=== PATIENT | female | born 1960 | race Hispanic/Latino ===

== ENCOUNTER 2017-01-14 10:10 | Emergency (ER) | payer OTHER ==
[2017-01-14 10:11] VITALS: BMI 19.5
--- NOTE | 2017-01-14 11:21 | C.PDOC ---
History Of Present Illness 56 yr old female presents to the ER with complaints of right arm pain, s/p falling onto her arm yesterday. Patient denies head injury, chest pain, SOB, back pain, weakness, numbness or any symptoms prior to the fall. Time Seen by Provider: 01/14/17 15:15 Chief Complaint (Nursing): Upper Extremity Problem/Injury History Per: Patient History/Exam Limitations: no limitations Onset/Duration Of Symptoms: Days (1) Current Symptoms Are (Timing): Still Present Past Medical History Reviewed: Historical Data, Nursing Documentation, Vital Signs Vital Signs: Last Vital Signs Temp 97.8 F 01/14/17 15:20 Pulse 76 01/14/17 15:20 Resp 16 01/14/17 15:20 BP 109/62 01/14/17 15:20 Pulse Ox 96 01/14/17 18:12 - Medical History PMH: Anxiety, Arthritis, Asthma, COPD - [facility] Procedures OTH UNILAT OOPHORECTOMY (09/14/02) SUBTOT ABD HYSTERECTOMY (09/14/02) Family History: States: No Known Family Hx - Social History Hx Tobacco Use: Yes Hx Alcohol Use: No Hx Substance Use: Yes Review Of Systems Except As Marked, All Systems Reviewed And Found Negative. Cardiovascular: Negative for: Chest Pain Respiratory: Negative for: Shortness of Breath Musculoskeletal: Positive for: Arm Pain (Right arm ). Negative for: Back Pain Neurological: Negative for: Weakness, Numbness Physical Exam - Physical Exam Appears: Non-toxic, No Acute Distress Skin: Warm, Dry, No Rash Head: Atraumatic, Normacephalic Oral Mucosa: Moist Neck: Normal, Normal ROM, No Midline Cervical Tenderness, Supple Chest: Symmetrical, No Tenderness Cardiovascular: Rhythm Regular, No Murmur Respiratory: Normal Breath Sounds, No Rales, No Rhonchi, No Stridor, No Wheezing Extremity: Normal ROM (At the right elbow, wrist and hand. ), Capillary Refill ( <2), Other (Right Upper Extremity - Swollen. Ecchymotic. Significant decrease ROM in all directions at the shoulder. ) Pulses: Left Radial: Normal, Right Radial: Normal Neurological/Psych: Oriented x3, Normal Speech, Normal Sensation ED Course And Treatment O2 Sat by Pulse Oximetry: 96 (RA ) Pulse Ox Interpretation: Normal - Other Rad X-Ray - Right Shoulder X-Ray: Viewed By Me, Read By Radiologist Interpretation: PROCEDURE: Radiographs of the Right Shoulder. HISTORY: r/o fx. COMPARISON: No prior. FINDINGS: BONES: Comminuted proximal right humeral fracture - greater tuberosity and surgical neck level and lateral humeral head involvement suspect. No some of the small fracture fragments project inferior to the glenoid rim border the medial portion of the right femoral head neck junction. JOINTS: Minimal right glenohumeral and lesser acromioclavicular osteoarthritis. SOFT TISSUES: Normal. OTHER FINDINGS: None. IMPRESSION: Comminuted fracture proximal right humerus. Consider CT right shoulder for fracture fragment mapping X-Ray - Right Humerus X-Ray: Viewed By Me, Read By Radiologist Interpretation: PROCEDURE: Radiographs of the right humerus. HISTORY: r/o fx. COMPARISON: None. FINDINGS: BONES: Proximal right femoral head and surgical neck comminuted fracture -described on the right shoulder x-ray report. Please note that report. SOFT TISSUES: Normal. OTHER FINDINGS: None. IMPRESSION: Comminuted fractures proximal right humerus -please note right shoulder x-ray report. No gross dislocation. Distal humerus unremarkable X-Ray - Right Forearm X-Ray: Viewed By Me, Read By Radiologist Interpretation: PROCEDURE: Radiographs of the Right Forearm. HISTORY: r/o fx. COMPARISON: None available. TECHNIQUE: Frontal and lateral views obtained. FINDINGS: BONES: No fracture or destructive lesion. JOINT SPACES: Unremarkable. OTHER FINDINGS: Apparent negative ulnar variance. Diffuse extensive subcutaneous reticulated edema-diffuse lymphedema with or without cellulitis inferred. No periosteal reaction or osseous destruction appreciated. No fracture or dislocation appreciated. IMPRESSION: Extensive subcutaneous edema. No fracture. X-Ray - Right Elbow X-Ray: Viewed By Me, Read By Radiologist Interpretation: PROCEDURE: Radiographs of the right elbow. HISTORY: r/o fx. COMPARISON: No prior. FINDINGS: BONES: Minimal coronoid spurring. No gross fracture. JOINTS: Minimal osteoarthritis. SOFT TISSUES: Diffuse subcutaneous edema. JOINT EFFUSION: Limited lateral view for optimally assessing joint effusion. OTHER FINDINGS: None. IMPRESSION: Limited lateral view (slightly oblique) for assessing for central joint effusion. Recommend additional imaging - true lateral right elbow exam. Comments: Findings were called in to the ER physician, Dr. Lee ; informed that orthopedist now taking care of patient and will address this concern with clinical exam. True lateral view of the elbow still recommended X-Ray - Right Hand X-Ray: Viewed By Me, Read By Radiologist Interpretation: PROCEDURE: Right Hand Radiographs. HISTORY: r/o fx. COMPARISON: None. FINDINGS: BONES: Normal. No fracture. JOINTS: Osteoarthrosis 1st and 5th digit. SOFT TISSUES: Soft tissue swelling 5th proximal interphalangeal joint and overlying the dorsal metatarsals. OTHER FINDINGS: Mild negative ulnar variance suspect. IMPRESSION: No gross fracture. Soft tissue swelling. Osteoarthrosis X-Ray - Right Wrist X-Ray: Viewed By Me, Read By Radiologist Interpretation: PROCEDURE: Right Wrist Radiographs. . HISTORY: r/o fx. COMPARISON: None. FINDINGS: BONES: Normal. No fracture. JOINTS: Normal. No dislocation. SOFT TISSUES: Normal. OTHER FINDINGS: Mild negative ulnar variance suspect. IMPRESSION: No fracture. - CT Scan/US CT - Upper Extremity Other Rad Studies (CT/US): Read By Radiologist, Radiology Report Reviewed CT/US Interpretation: PROCEDURE: CT examination of right shoulder without contrast. HISTORY: f/u to x-rays today, evaluation of fx. COMPARISON: Comparison made with prior right shoulder radiographs from 01/14/2017 earlier in the same day as well as right of the right humerus. TECHNIQUE: A volumetric CT acquisition through the right shoulder was performed without intravenous contrast as requested. Reformatted datasets have been provided in multiple planes. Contrast dose: 0. Radiation dose: Total exam DLP = 478 mGy- cm. This CT exam was performed using one or more of the following dose reduction techniques: Automated exposure control, adjustment of the mA and/or kV according to patient size, and/or use of iterative reconstruction technique. FINDINGS: Examination reiterates a comminuted impacted fracture proximal right humerus involving the proximal metaphysis as well as the epiphysis. There is no significant angulation of the major distal fracture fragment. There are least 6 independent for comminuted components without involving the right humeral head and metaphysis. No subluxation or dislocation is identified. Fracture appears to involve the periphery of the articular cortex superiorly and inferomedially at the humeral head. The acromioclavicular joint appears intact though mildly degenerated. Mild hemarthrosis identified extending minimally into the subacromial subdeltoid bursa. Incidental note is made of right breast calcifications. IMPRESSION: Comminuted fracture of the proximal right humerus involving the head and proximal metaphysis without dislocation or subluxation. Please see details above. Medical Decision Making Medical Decision Making: PLAN: * CT - Upper Extremity * X-Ray - Right Shoulder, Right Humerus, Right Elbow, Right Forearm, Right Wrist , Right Hand * Venous Duplex * Tylenol PO Disposition - Disposition Referrals: Stephanie Galdamez MD [Staff Provider] - Disposition: HOME/ ROUTINE Disposition Time: 14:40 Condition: GOOD Additional Instructions: Thank you for letting us take care of you today. Your provider was Dr. Dewey. You were treated for arm fracture. The emergency medical care you received today was directed at your acute symptoms. If you were prescribed any medication, please fill it and take as directed. It may take several days for your symptoms to resolve. Return to the Emergency Department if your symptoms worsen, do not improve, or if you have any other problems. Please contact your doctor or call one of the physicians/clinics you have been referred to that are listed on the Patient Visit Information form that is included in your discharge packet. Bring any paperwork you were given at discharge with you along with any medications you are taking to your follow up visit. Our treatment cannot replace ongoing medical care by a primary care provider (PCP) outside of the emergency department. Thank you for allowing the [facility] team to be part of your care today. Continue to wear the sling at all times. Follow up with Dr. Devon Frances tomorrow for your orthopedic evaluation. Instructions: Arm Fracture in Adults (ED) - Clinical Impression Clinical Impression: Humeral fracture - Scribe Statement The provider has reviewed the documentation as recorded by the Sheila Chavez Provider Attestation: All medical record entries made by the Sheila were at my direction and personally dictated by me. I have reviewed the chart and agree that the record accurately reflects my personal performance of the history, physical exam, medical decision making, and the department course for this patient. I have also personally directed, reviewed, and agree with the discharge instructions and disposition.
--- NOTE | 2017-01-14 12:16 | RAD ---
PROCEDURE: Radiographs of the Right Shoulder HISTORY: r/o fx COMPARISON: No prior. FINDINGS: BONES: Comminuted proximal right humeral fracture - greater tuberosity and surgical neck level and lateral humeral head involvement suspect. No some of the small fracture fragments project inferior to the glenoid rim border the medial portion of the right femoral head neck junction. JOINTS: Minimal right glenohumeral and lesser acromioclavicular osteoarthritis. SOFT TISSUES: Normal. OTHER FINDINGS: None. IMPRESSION: Comminuted fracture proximal right humerus. Consider CT right shoulder for fracture fragment mapping
--- NOTE | 2017-01-14 12:18 | RAD ---
PROCEDURE: Radiographs of the right humerus. HISTORY: r/o fx COMPARISON: None FINDINGS: BONES: Proximal right femoral head and surgical neck comminuted fracture -described on the right shoulder x-ray report. Please note that report SOFT TISSUES: Normal. OTHER FINDINGS: None. IMPRESSION: Comminuted fractures proximal right humerus -please note right shoulder x-ray report. No gross dislocation. Distal humerus unremarkable
--- NOTE | 2017-01-14 12:25 | CP.PCM.CON ---
History of Present Illness - History of Present Illness History of Present Illness: Orthopedic consultation requested Dr. Ramsey for right arm pain from fall 56F complains of right shoulder pain from fall yesterday. She says the pain is in her shoulder, but her entire arm is swollen and black and blue so she came to the ER. She denies ETOH, denies taking blood thinners. She says she injured her other arm last year and had brace for that arm that she used for this arm. She says she had an mtatie bandage that she wrapped around her upper arm last night. She denies any head/neck pain, denies pain in her other extremities. 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 Smokes 1ppd. Smoking cessation advised. PMD; Dr. Abdi PMH: anxiety, COPD, asthma Review of Systems - Review of Systems All systems: reviewed and no additional remarkable complaints except - Constitutional Additional comments: no weakness - Cardiovascular Cardiovascular: As Per HPI - Respiratory Respiratory: As Per HPI - Gastrointestinal Additional comments: no nausea/vomiting - Genitourinary Additional comments: denies dark urine, urination amount and frequency normal - Musculoskeletal Musculoskeletal: As Per HPI - Integumentary Integumentary: Unusual Bruising - Neurological Neurological: As Per HPI - Hematologic/Lymphatic Hematologic: absent: As Per HPI, Easy Bleeding, Easy Bruising, Lymphadenopathy, Other Past Patient History - Tetanus Immunizations Tetanus Immunization: Unknown - Past Medical History & Family History Past Medical History?: Yes Past Family History: Reviewed and not pertinent - Past Social History Smoking Status: Heavy Smoker > 10 Cigarettes Daily - CARDIAC Hx Cardiac Disorders: Yes Hx Hypotension: Yes - PULMONARY Hx Asthma: Yes Hx Chronic Obstructive Pulmonary Disease (COPD): Yes - MUSCULOSKELETAL/RHEUMATOLOGICAL Hx Arthritis: Yes - PSYCHIATRIC Hx Anxiety: Yes Hx Depression: No Hx Substance Use: Yes - SURGICAL HISTORY Hx Surgeries: Yes Hx Herniorrhaphy: Yes (LEFT INGUINAL) Hx Hysterectomy: Yes (partial) Other/Comment: ECTOPIC - ANESTHESIA Hx Anesthesia: Yes Hx Anesthesia Reactions: No Meds Allergies/Adverse Reactions: Allergies Allergy/AdvReac Type Severity Reaction Status Date / Time aspirin Allergy WHEEZING Verified 01/14/17 10:22 Penicillins Allergy WHEEZING Verified 01/14/17 10:22 Sulfa (Sulfonamide Allergy WHEEZING Verified 01/14/17 10:22 Antibiotics) Physical Exam - Constitutional Appears: Well, No Acute Distress - Head Exam Head Exam: ATRAUMATIC, NORMAL INSPECTION - Neck Exam Neck exam: Positive for: Full Rom, Normal Inspection - Respiratory Exam Respiratory Exam: NORMAL BREATHING PATTERN - Extremities Exam Additional comments: non tender to distal humerus/elbow/forearm/wrist/hand but extension ecchymosis and soft tissue swelling, ? due to patient wrapping mattie bandage causing pseudo tourniquet. - Expanded Upper Extremities Exam Right Shoulder exam: ecchymosis, swelling, tenderness Upper Arm exam: ecchymosis, swelling Elbow exam: ecchymosis, swelling (non tender, no pain with flex/ext/pron/ supination, full ROM, stiffness due to swelling) Forearm Wrist exam: ecchymosis, swelling Neuro motor exam: finger 2-5 abduction intact, thumb abduction, thumb IP flexion intact, thumb opposition intact, wrist extension intact Neurosensory exam: median nerve intact, radial nerve intact, ulnar nerve intact Vascular exam: radial pulse - Neurological Exam Neurological exam: Alert, Oriented x3 - Psychiatric Exam Psychiatric exam: Normal Affect, Normal Mood - Skin Skin Exam: Dry, Intact, Warm Additional comments: extensive ecchymosis to entire right arm/elbow/forearm Results - Vital Signs Recent Vital Signs: Last Vital Signs Temp 98.2 F 01/14/17 10:21 Pulse 89 01/14/17 10:21 Resp 18 01/14/17 10:21 BP 108/64 01/14/17 10:21 Pulse Ox 96 01/14/17 11:21 Assessment & Plan (1) Fracture of humerus, proximal, left, closed Assessment and Plan: comminuted proximal humerus fracture no dislocation noted on x-rays sling placed with hand elevated above elbow ice encouraged patient to keep hand elevated, and encourage active ROM of fingers and wrist every hour swelling and ecchymosis to elbow and forearm more than expected this soon after fracture, possibly due to mattie bandage and lack of elevation check doppers r/o DVT CT scan shoulder for further evaluation of fracture repeat lateral elbow xray, clinically very low suspicion of fracture, but due to excessive ecchymosis, patient taking high doses of methadone may have muted pain response so will r/o joint effusion on lateral return to ER for CP/SOB/dark or difficulty with urination d/w Dr. Ramsey, agrees with above addendum: lateral xray neg for effusion, and dopplers neg for DVT Status: Acute Radiology Interpretation - Blood Tester Fowl Blood Tester Fowl:: Radiologist, Daycare Teacher - Radiology Interpretation #2 Interpretation: Patient Name / ID : BHAKTI LAZAR / [id number] Exam Date : 01/14/2017 10:47:57 ( Approved ) Study Comment : Sex / Age : F / 56Y Creator : SAM GAY Dictator : Debra Beavers V. Finishing Room Supervisor : Stave Jointer : Debra Beavers V. Approver2 : Report Date : 01/14/2017 11:28:38 My Comment : PROCEDURE: Radiographs of the Right Shoulder HISTORY: r/o fx COMPARISON: No prior. FINDINGS: BONES: Comminuted proximal right humeral fracture - greater tuberosity and surgical neck level and lateral humeral head involvement suspect. No some of the small fracture fragments project inferior to the glenoid rim border the medial portion of the right femoral head neck junction. JOINTS: Minimal right glenohumeral and lesser acromioclavicular osteoarthritis. SOFT TISSUES: Normal. OTHER FINDINGS: None. IMPRESSION: Comminuted fracture proximal right humerus. Consider CT right shoulder for fracture fragment mapping Patient Name / ID : BHAKTI LAZAR / [id number] Exam Date : 01/14/2017 10:47:40 ( Approved ) Study Comment : Sex / Age : F / 56Y Creator : SAM GAY Dictator : Debra Beavers V. Finishing Room Supervisor : Stave Jointer : Debra Beavers V. Approver2 : Report Date : 01/14/2017 11:28:38 My Comment : PROCEDURE: Radiographs of the right humerus. HISTORY: r/o fx COMPARISON: None FINDINGS: BONES: Proximal right femoral head and surgical neck comminuted fracture -described on the right shoulder x-ray report. Please note that report SOFT TISSUES: Normal. OTHER FINDINGS: None. IMPRESSION: Comminuted fractures proximal right humerus -please note right shoulder x-ray report. No gross dislocation. Distal humerus unremarkable - Radiology Interpretation #3 Interpretation: Patient Name / ID : BHAKTI LAZAR / [id number] Exam Date : 01/14/2017 10:47:21 ( Approved ) Study Comment : Sex / Age : F / 56Y Creator : SAM GAY Dictator : Debra Beavers V. Finishing Room Supervisor : Stave Jointer : Debra Beavers V. Approver2 : Report Date : 01/14/2017 11:28:38 My Comment : PROCEDURE: Radiographs of the Right Forearm HISTORY: r/o fx COMPARISON: None available. TECHNIQUE: Frontal and lateral views obtained. FINDINGS: BONES: No fracture or destructive lesion. JOINT SPACES: Unremarkable. OTHER FINDINGS: Apparent negative ulnar variance. Diffuse extensive subcutaneous reticulated edema-diffuse lymphedema with or without cellulitis inferred. No periosteal reaction or osseous destruction appreciated. No fracture or dislocation appreciated IMPRESSION: Extensive subcutaneous edema. No fracture. Patient Name / ID : BHAKTI LAZAR / [id number] Exam Date : 01/14/2017 10:47:07 ( Approved ) Study Comment : Sex / Age : F / 56Y Creator : SAM GAY Dictator : Debra Beavers V. Finishing Room Supervisor : Stave Jointer : Debra Beavers V. Approver2 : Report Date : 01/14/2017 11:28:38 My Comment : PROCEDURE: Radiographs of the right elbow. HISTORY: r/o fx COMPARISON: No prior. FINDINGS: BONES: Minimal coronoid spurring. No gross fracture. JOINTS: Minimal osteoarthritis. SOFT TISSUES: Diffuse subcutaneous edema JOINT EFFUSION: Limited lateral view for optimally assessing joint effusion. OTHER FINDINGS: None. IMPRESSION: Limited lateral view (slightly oblique) for assessing for central joint effusion. Recommend additional imaging - true lateral right elbow exam Comments: Findings were called in to the ER physician, Dr. Lee ; informed that orthopedist now taking care of patient and will address this concern with clinical exam. True lateral view of the elbow still recommended Patient Name / ID : BHAKTI LAZAR / [id number] Exam Date : 01/14/2017 10:46:52 ( Approved ) Study Comment : Sex / Age : F / 56Y Creator : SAM GAY Dictator : Debra Beavers V. Finishing Room Supervisor : Stave Jointer : Debra Beavers V. Approver2 : Report Date : 01/14/2017 11:28:38 My Comment : PROCEDURE: Right Hand Radiographs. HISTORY: r/o fx COMPARISON: None. FINDINGS: BONES: Normal. No fracture. JOINTS: Osteoarthrosis 1st and 5th digit SOFT TISSUES: Soft tissue swelling 5th proximal interphalangeal joint and overlying the dorsal metatarsals OTHER FINDINGS: Mild negative ulnar variance suspect IMPRESSION: No gross fracture. Soft tissue swelling. Osteoarthrosis Patient Name / ID : BHAKTI LAZAR / [id number] Exam Date : 01/14/2017 10:46:28 ( Approved ) Study Comment : Sex / Age : F / 56Y Creator : SAM GAY Dictator : Debra Beavers V. Finishing Room Supervisor : Stave Jointer : Debra Beavers V. Approver2 : Report Date : 01/14/2017 11:28:38 My Comment : PROCEDURE: Right Wrist Radiographs. HISTORY: r/o fx COMPARISON: None. FINDINGS: BONES: Normal. No fracture. JOINTS: Normal. No dislocation. SOFT TISSUES: Normal. OTHER FINDINGS: Mild negative ulnar variance suspect IMPRESSION: No fracture.
--- NOTE | 2017-01-14 12:29 | RAD ---
PROCEDURE: Radiographs of the Right Forearm HISTORY: r/o fx COMPARISON: None available. TECHNIQUE: Frontal and lateral views obtained. FINDINGS: BONES: No fracture or destructive lesion. JOINT SPACES: Unremarkable. OTHER FINDINGS: Apparent negative ulnar variance. Diffuse extensive subcutaneous reticulated edema-diffuse lymphedema with or without cellulitis inferred. No periosteal reaction or osseous destruction appreciated. No fracture or dislocation appreciated IMPRESSION: Extensive subcutaneous edema. No fracture.
--- NOTE | 2017-01-14 12:39 | RAD ---
PROCEDURE: Radiographs of the right elbow. HISTORY: r/o fx COMPARISON: No prior. FINDINGS: BONES: Minimal coronoid spurring. No gross fracture. JOINTS: Minimal osteoarthritis. SOFT TISSUES: Diffuse subcutaneous edema JOINT EFFUSION: Limited lateral view for optimally assessing joint effusion. OTHER FINDINGS: None. IMPRESSION: Limited lateral view (slightly oblique) for assessing for central joint effusion. Recommend additional imaging - true lateral right elbow exam Comments: Findings were called in to the ER physician, Dr. Lee ; informed that orthopedist now taking care of patient and will address this concern with clinical exam. True lateral view of the elbow still recommended
--- NOTE | 2017-01-14 12:42 | RAD ---
PROCEDURE: Right Hand Radiographs. HISTORY: r/o fx COMPARISON: None. FINDINGS: BONES: Normal. No fracture. JOINTS: Osteoarthrosis 1st and 5th digit SOFT TISSUES: Soft tissue swelling 5th proximal interphalangeal joint and overlying the dorsal metatarsals OTHER FINDINGS: Mild negative ulnar variance suspect IMPRESSION: No gross fracture. Soft tissue swelling. Osteoarthrosis
--- NOTE | 2017-01-14 12:43 | RAD ---
PROCEDURE: Right Wrist Radiographs. HISTORY: r/o fx COMPARISON: None. FINDINGS: BONES: Normal. No fracture. JOINTS: Normal. No dislocation. SOFT TISSUES: Normal. OTHER FINDINGS: Mild negative ulnar variance suspect IMPRESSION: No fracture.
[2017-01-14 15:21] VITALS: BP 109/62; PULSE 76; RESP 16; TEMP 97.8
--- NOTE | 2017-01-14 16:05 | CT ---
PROCEDURE: CT examination of right shoulder without contrast HISTORY: f/u to x-rays today, evaluation of fx COMPARISON: Comparison made with prior right shoulder radiographs from 01/14/2017 earlier in the same day as well as right of the right humerus. TECHNIQUE: A volumetric CT acquisition through the right shoulder was performed without intravenous contrast as requested. Reformatted datasets have been provided in multiple planes. Contrast dose: 0. Radiation dose: Total exam DLP = 478 mGy-cm. This CT exam was performed using one or more of the following dose reduction techniques: Automated exposure control, adjustment of the mA and/or kV according to patient size, and/or use of iterative reconstruction technique. FINDINGS: Examination reiterates a comminuted impacted fracture proximal right humerus involving the proximal metaphysis as well as the epiphysis. There is no significant angulation of the major distal fracture fragment. There are least 6 independent for comminuted components without involving the right humeral head and metaphysis. No subluxation or dislocation is identified. Fracture appears to involve the periphery of the articular cortex superiorly and inferomedially at the humeral head. The acromioclavicular joint appears intact though mildly degenerated. Mild hemarthrosis identified extending minimally into the subacromial subdeltoid bursa. Incidental note is made of right breast calcifications. IMPRESSION: Comminuted fracture of the proximal right humerus involving the head and proximal metaphysis without dislocation or subluxation. Please see details above.
[2017-01-14 16:08] VITALS: O2SAT 96
--- NOTE | 2017-01-16 10:20 | VASCLAB ---
PROCEDURE: Right Upper Extremity Venous Duplex Exam HISTORY: LEG PAIN PRIORS: None. TECHNIQUE: Right upper extremity, internal jugular, subclavian, axillary, brachial, ulnar, radial, basilic and upper cephalic veins were evaluated. Flow was assessed with color Doppler, compressibility, assessment of phasic flow and augmentation response. Report prepared by MUNIR Mckeon, RVT FINDINGS: RIGHT: 1. Internal Jugular: 1.1. Compressibility - Fully compressible: Thrombus - None : Flow - Phasic: Augmentation -Normal: Reflux - None. 2. Subclavian: 2.1. Compressibility - Fully compressible: Thrombus - None : Flow - Phasic: Augmentation -Normal: Reflux - None. 3. Axillary: 3.1. Compressibility - Fully compressible: Thrombus - None : Flow - Phasic: Augmentation -Normal: Reflux - None. 4. Brachial: 4.1. Compressibility - Fully compressible: Thrombus - None: Flow - Phasic: Augmentation -Normal: Reflux - None. 5. Ulnar: 5.1. Compressibility - Fully compressible: Thrombus - None: Flow - Phasic: Augmentation -Normal: Reflux - None. 6. Radial: 6.1. Compressibility - Fully compressible: Thrombus - None: Flow - Phasic: Augmentation - Normal: Reflux - None. 7. Cephalic: 7.1. Compressibility - Fully compressible: Thrombus - None: Flow - Phasic: Augmentation -Normal: Reflux - None. 8. Basilic: 8.1. Compressibility - Fully compressible: Thrombus - None: Flow - Phasic: Augmentation -Normal: Reflux - None. OTHER FINDINGS: Right: None. IMPRESSION: Right: No evidence of vein thrombosis of the right upper extremity with excellent venous flow. Normal valve function noted of the right side. Normal venous flow noted in the left internal jugular and left subclavian veins.
== END 2017-01-14 15:27 | disposition home or self-care (01) ==
LOC: C.ER 10:10
DX: S42.211A Unspecified displaced fracture of surgical neck of right humerus, initial encounter for closed fracture (principal); W19.XXXA Unspecified fall, initial encounter; Y92.9 Unspecified place or not applicable